=== PATIENT | female | born 1985 | race Caucasian/White ===

== ENCOUNTER 2017-04-15 19:33 | Emergency (ER) | payer OTHER ==
[~2017-04-15] VITALS: Ht 175.3 cm; Wt 93.2 kg
[~2017-04-15 19:33] MED LIST: BETAPACE 80MG80 MG PO; LEVOTHYROXIN0.025 M1 PO; PRENATAL VITAMI1 TA5 PO; PROCARDIA10 MG PO; VALTREX PO; armour thyroid PO
[2017-04-15 19:36] VITALS: BP 133/69; TEMP 98.2
[2017-04-15 20:08] LABS: COLLECTION METHOD CLEAN CATCH
[2017-04-15 20:14] LABS: MUCOUS Present /lpf; PH 7 (5-8); SQUAMOUS EPITHELIAL 0-2 /hpf; URINE APPEARANCE Clear; URINE BACTERIA Rare /hpf; URINE BILIRUBIN Negative (NEGATIVE); URINE BLOOD Negative (NEGATIVE); URINE COLOR Yellow; URINE GLUCOSE Negative (NEGATIVE); URINE KETONE 1+ (NEGATIVE); URINE LEUKOCYTE ESTERASE Negative (NEGATIVE); URINE PROTEIN(semi-quant) Negative (NEGATIVE); URINE UROBILINOGEN Negative (NEGATIVE); URINE WBC 0-2 /hpf
[2017-04-15 20:18] LABS: BASO # 0.1 (0.0-0.2); BASO % 0.4 % (0.0-2.0); EOS % 0.1 % (0-4.0); GRAN # 16.7 (1.4-6.5); GRAN % 87.1 % (42.2-75.2); HEMATOCRIT 41.2 % (37.0-47.0); HEMOGLOBIN 13.9 g/dl (12.5-16.0); LYMPH # 1.1 (1.2-3.4); LYMPH % 5.7 % (20.0-51.0); MEAN CELL VOLUME 85 fl (80.0-100.0); MEAN CORPUSCULAR HEMOGLOBIN 29 pg (27.0-31.0); MEAN CORPUSCULAR HGB CONC 34 g/dl (33.0-37.0); MEAN PLATELET VOLUME 10.9 fl (7.4-10.4); MONO # 1.2 (0.1-0.6); MONO % 6.2 % (1.7-9.3); PLATELET COUNT 255 K/mm3 (130-400); RED BLOOD COUNT 4.85 M/mm3 (4.10-5.30); WHITE BLOOD COUNT 19.2 K/mm3 (4.8-10.8)
[2017-04-15 20:35] LABS: ADJUSTED CALCIUM 8.8 mg/dL (8.4-10.2); ALANINE AMINOTRANSFERASE 28 U/L (9-52); ALBUMIN 4.5 gm/dL (3.5-5.0); ALKALINE PHOSPHATASE 85 U/L (50-136); ANION GAP 10 mmol/L (7-16); BILIRUBIN,TOTAL 0.7 mg/dL (0.0-1.0); BLOOD UREA NITROGEN 10 mg/dL (7-17); CALCIUM 9.2 mg/dL (8.4-10.2); CARBON DIOXIDE 25 mmol/L (22-30); CHLORIDE 101 mmol/L (98-107); CREATININE, serum 0.67 mg/dL (0.52-1.25); GLUCOSE 112 mg/dL (74-106); LIPASE 67 U/L (23-300); POTASSIUM 3.6 mmol/L (3.4-5.0); SODIUM 137 mmol/L (137-145); TOTAL PROTEIN 7.8 gm/dL (6.4-8.2)
[2017-04-15 20:36] LABS: C-REACTIVE PROTEIN < 0.5 mg/dL (0.0-0.9)
[2017-04-15] MEDS ORDERED: PHENERGAN 25 TA25 MG PO (21:13)
[2017-04-15 21:32] VITALS: PULSE 80
== END 2017-04-15 21:36 | disposition home or self-care (01) ==
LOC: COL.ER 19:33
PROVIDERS: Physician Assistant
DX: K29.70 Gastritis, unspecified, without bleeding (principal)
CPT/HCPCS: C9113; J2405; J2765; J7030

== ENCOUNTER 2018-09-29 21:59 | Observation (INO) | payer OTHER ==
[~2018-09-29] VITALS: Ht 175.3 cm; Wt 87.1 kg
[~2018-09-29 21:59] MED LIST changes: +PHENERGAN 25 TA25 MG PO
[2018-09-29 22:34] LABS: BASO # 0.1 (0.0-0.2); BASO % 0.6 % (0.0-2.0); EOS # 0.1 (0.0-0.7); EOS % 0.6 % (0-4.0); GRAN # 7.2 (1.4-6.5); GRAN % 72.2 % (42.2-75.2); HEMATOCRIT 41.3 % (37.0-47.0); HEMOGLOBIN 13.7 g/dl (12.5-16.0); LYMPH % 20.2 % (20.0-51.0); MEAN CELL VOLUME 85 fl (80.0-100.0); MEAN CORPUSCULAR HEMOGLOBIN 28 pg (27.0-31.0); MEAN CORPUSCULAR HGB CONC 33 g/dl (33.0-37.0); MEAN PLATELET VOLUME 11.1 fl (7.4-10.4); MONO # 0.6 (0.1-0.6); MONO % 6.2 % (1.7-9.3); PLATELET COUNT 324 K/mm3 (130-400); RED BLOOD COUNT 4.89 M/mm3 (4.10-5.30); REDCELL DISTRIBUTION WIDTH-CV 13.2 % (11.5-14.5)
[2018-09-29 22:44] LABS: ALBUMIN 4.1 gm/dL (3.5-5.0); BILIRUBIN,TOTAL 0.8 mg/dL (0.0-1.0); CALCIUM 9.4 mg/dL (8.4-10.2); CREATININE, serum 0.64 (0.52-1.25); TOTAL PROTEIN 7.8 gm/dL (6.4-8.2)
[2018-09-30] VITALS (11 sets, daily range): BP systolic 72–115; BP diastolic 50–64; PULSE 56–69; TEMP 97.7–98.7
--- NOTE | 2018-09-30 01:35 | NUR ---
PATIENT ARRIVED PER W/C FROM THE ED. IS ALERT AND ORIENTED X4. PATIENTS FATHER IS AT BEDSIDE. SL TO LEFT AC. DENIES PAIN AT THIS TIME.
[2018-09-30] MEDS ORDERED: FEMYNOR 28 TAB1 EACH PO (01:48)
--- NOTE | 2018-09-30 03:04 | NUR ---
Spoke with DR DODGE regarding orders that were dc'd upon transfer. Reviewed and renewed orders at this time.
--- NOTE | 2018-09-30 06:24 | NUR ---
Reports pain 7/10 to epigastric area, medicated with Morphine 4mg IV and Zofran 4mg IV at this time. IVF infusing to left AC without redness or swelling.
--- NOTE | 2018-09-30 08:00 | NUR ---
PATIENT IS DROWSY AND RESTING IN BED. PATIENT IS A&OX4. VSS. PATIENT SUN-BURNT, OTHERWISE SKIN NORMAL, WARM, DRY AND INTACT. BOWEL SOUNDS ACTIVE ALL FOUR QUADRANTS. PATIENT IS NPO FOR SURGERY. PATIENT STATES THAT SHE FEELS NAUSEATED, BUT DENIES VOMITING. POSITIVE PEDAL PULSES EQUAL BILATERALLY. LEFT AC TO INT. CALL LIGHT WITHIN REACH. PATIENT DENIES ANY OTHER NEEDS AT THIS TIME.
--- NOTE | 2018-09-30 12:17 | NUR ---
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 No needs right now.
--- NOTE | 2018-09-30 13:35 | NUR ---
PATIENT ARRIVED BACK FROM PACU VIA BED. PATIENT DROWSY BUT EASILY AROUSEABLE. ABDOMINAL LAP SITES X3 DRESSED WITH BANDAIDS AND ARE CD&I. PATIENT'S PAIN POST-OPERRATIVELY WELL CONTROOLED WITH PO NORCO. POST-OP VSS. WILL CONTINUE TO MONITOR.
--- NOTE | 2018-09-30 13:50 | NUR ---
PAM met with the patient and patient's , David, to discuss discharge plan. The patient lives in [place] with her and their two children. She reports independence with ADLs and does not use any DME. The patient's PCP is Dr. Barrett Huerta and she receives her medications at [facility]. She reports no difficulties obtaining her meds. The patient does not have advanced directives and she was not interested in completing them at this time. The patient plans to return home with her upon discharge. No additional needs at this time.
--- NOTE | 2018-09-30 17:40 | NUR ---
PATIENT TOLERATING DIET WITHOUT ANY COMPLAINTS OF N/V. POST-OP VSS. PATIENT GIVEN PRN DOSE OF PO NORCO PRIOR TO DISCHARGE. PATIENT'S LEFT AC INT DC'D PER PENDING DISCHARGE. PATIENT TOLERATED WELL. DISCHARGE INSTRUCTIONS REVIEWED WITH PATIENT AND . ALL QUESTIONS ANSWERED. PATIENT PERSONAL BELONGINGS GATHERED. PATIENT TAKEN TO PERSONAL VEHICLE VIA WHEELCHAIR BY SURGICAL STAFF. PATIENT DISCHARGED.
== END 2018-09-30 17:40 | disposition home or self-care (01) ==
LOC: COL.ER 21:59 → SURG 09-30 00:53
PROVIDERS: Emergency Medicine; ADMIT Surgery
DX: K35.80 Unspecified acute appendicitis (principal); I47.1 Supraventricular tachycardia
CPT/HCPCS: G0378; J1100; J1885; J2270; J2405; J2543; J2550; J2704; J2710; J2765; J3010; J7030; J7120; Q9967

== ENCOUNTER → 2019-08-23 | Outpatient (CLI) | payer BC ==
[~2019-08-23] MED LIST changes: +FEMYNOR 28 TAB1 EACH PO
== END ==
LOC: ZCOL.LAB 10:58
DX: Z20.828 Contact with and (suspected) exposure to other viral communicable diseases (principal)